=== PATIENT | female | born 1960 | race Caucasian/White ===

== ENCOUNTER 2017-05-20 10:54 | Emergency (ER) | payer MEDICARE ==
[~2017-05-20] VITALS: Ht 170.2 cm; Wt 90.0 kg
[~2017-05-20 10:54] MED LIST: ALBUTEROL2.5 MG/31 IN; AMOXICILLIN500 MG PO; AMOXICILLIN875 MG PO; AZO DINE95 MG OR; AZO STANDARD OR; BACTRIM DS1 TAB OR; BACTRIM DS1 TAB PO; CELEXA20 M1 OR; CEPHALEXIN500 MG PO; CHERATUSSIN OR; CIPRO250 MG OR; DIFLUCAN100 MG PO; FLONASE NASAL50 MCG; FLOVENT HFA110 MCG IN; GLIPIZIDE ER5 MG OR; GLIPIZIDE XL10 MG OR; GLUCOTROL10 MG OR; HUMULIN 70/30 K1 INJ SC; HUMULIN 70/30 SC; KEFLEX500 M1 PO; LORTAB 10 PO; LORTAB5 OR; LORTAB5 PO; LYRICA; LYRICA75 MG PO; MACROBID100 MG OR; MEDDOSEPAK PO; MELATONIN CR3 MG PO; NAPROSYN500 MG PO; NEURONTIN400 MG PO; PERCOCET 5/321 COMBO PO; PERCOCET 5/325M1 TAB OR; PRAVACHOL10 MG OR; PRAVASTATIN40 MG PO; PRAVASTATIN80 MG OR; PREDNISONE10 MG PO; PROAIR HFA IN; PROVENTIL0.083 % IN; ROBITUSSIN AC10 ML OR; SIMVASTATIN40 MG OR; TIZANIDINE4 MG PO; TORADOL30 MG/VIAL IM; TRAMADOL HCL50 MG OR; TRAZODONE150 MG OR; TRICOR48 MG PO; VICOPROFEN OR; ZOCOR20 MG OR; ZOLOFT50 MG PO; ZPAK OR; ZYLOPRIM100 MG PO; [UNRECOGNIZED DRUG - OTHER] SC
[2017-05-20 11:22] LABS: HEMATOCRIT 40.5 % (37.0-47.0); HEMOGLOBIN 12.7 g/dl (12.0-16.0); IMMATURE GRANULOCYTES 3.6 % (0.0-1.0); MEAN CELL VOLUME 90.6 fL CALC (80.0-100.0); MEAN CORPUSCULAR HGB 28.4 pG CALC (26.0-32.0); MEAN CORPUSCULAR HGB CONC 31.4 g/L CALC (32.0-36.0); NEUT# 16.36 thou/uL (2.00-7.15); RED BLOOD COUNT 4.47 mill/uL (4.20-5.60)
[2017-05-20 11:41] LABS: ALBUMIN 3.6 g/dL (3.2-5.0); BILIRUBIN, TOTAL 0.4 mg/dL (0.0-1.4); CALCIUM 7.4 mg/dL (8.4-10.2); CREATININE 3.8 mg/dL (0.5-1.0); POTASSIUM 4.7 mmol/l (3.5-5.1)
[2017-05-20 11:42] LABS: ACT PARTIAL THROMBO TIME 27.3 SECONDS (20.0-32.5); D-DIMER 1.39 mg/L (0.19-0.60); INTERNATIONAL NORMALIZED RATIO 0.9 RATIO (0.7-1.3); PROTHROMBIN TIME 10.2 SECONDS (9.0-12.5)
[2017-05-20 16:34] VITALS: BP 140/79
--- NOTE | 2017-05-23 11:39 | NUR ---
PT TRN TO [facility] ON 05/20/17. FAXED PRELIMINARY BLOOD CULTURE FROM 05/20/17, SHOWING GRAM POSITIVE COCCI IN 1 BOTTLE, TO [facility] AT [phone] (FAX), (PHONE)
== END 2017-05-20 16:36 | disposition short-term general hospital (02) ==
LOC: ED 10:54
PROVIDERS: Emergency Medicine
DX: R07.9 Chest pain, unspecified (principal); J06.9 Acute upper respiratory infection, unspecified; D72.829 Elevated white blood cell count, unspecified; I12.0 Hypertensive chronic kidney disease with stage 5 chronic kidney disease or end stage renal disease; N18.6 End stage renal disease; Z99.2 Dependence on renal dialysis; R06.02 Shortness of breath; F17.200 Nicotine dependence, unspecified, uncomplicated; B95.7 Other staphylococcus as the cause of diseases classified elsewhere
CPT/HCPCS: A9540; A9567; J1650

== ENCOUNTER 2019-04-19 16:55 | Emergency (ER) | payer MEDICARE ==
[~2019-04-19] VITALS: Ht 170.2 cm; Wt 65.0 kg
[2019-04-19 17:43] LABS: HEMATOCRIT 44.5 % (37.0-47.0); HEMOGLOBIN 13.6 g/dl (12.0-16.0); IMMATURE GRANULOCYTES 1.3 % (0.0-5.0); MEAN CELL VOLUME 86.6 fL CALC (80.0-100.0); MEAN CORPUSCULAR HGB 26.5 pG CALC (26.0-32.0); MEAN CORPUSCULAR HGB CONC 30.6 g/L CALC (32.0-36.0); NEUT# 14.82 thou/uL (2.00-7.15); RED BLOOD COUNT 5.14 mill/uL (4.20-5.60); RED CELL DISTRI WIDTH 14.8 % (11.5-15.5)
[2019-04-19 18:01] LABS: ALBUMIN 3.3 g/dL (3.2-5.0); BILIRUBIN, TOTAL 0.3 mg/dL (0.0-1.4); TOTAL PROTEIN 6.1 g/dL (6.3-8.2)
[2019-04-19 18:03] LABS: CREATININE 2.7 mg/dL (0.5-1.0); POTASSIUM 3.5 mmol/l (3.5-5.1)
[2019-04-19] MEDS ORDERED: ALBUTEROL SUL0.083 % IN (18:50)
[2019-04-19] MEDS ORDERED: ZITHROMAX250 MG PO (18:50)
[2019-04-19 20:25] VITALS: BP 164/74
[2019-04-19] MEDS ORDERED: TORADOL PO (20:26)
== END 2019-04-19 20:25 | disposition home or self-care (01) ==
LOC: ED 16:55
PROVIDERS: Emergency Medicine
DX: J44.1 Chronic obstructive pulmonary disease with (acute) exacerbation (principal); J06.9 Acute upper respiratory infection, unspecified; N18.6 End stage renal disease; F17.200 Nicotine dependence, unspecified, uncomplicated; Z99.2 Dependence on renal dialysis; R07.9 Chest pain, unspecified
CPT/HCPCS: J0131

== ENCOUNTER 2020-10-13 19:30 | Emergency (ER) | payer MEDICARE, MEDICAID ==
[~2020-10-13] VITALS: Ht 170.2 cm; Wt 68.0 kg
[~2020-10-13 19:30] MED LIST changes: +ALBUTEROL SUL0.083 % IN; +TORADOL PO; +ZITHROMAX250 MG PO
[2020-10-13] MEDS ORDERED: CARVEDILOL25 MG PO (20:40)
[2020-10-13] MEDS ORDERED: PERCOCET 5/321 COMBO PO (22:38)
[2020-10-13 22:40] VITALS: BP 184/86
== END 2020-10-13 22:48 | disposition home or self-care (01) ==
LOC: ED 19:30
DX: R07.89 Other chest pain (principal); R03.0 Elevated blood-pressure reading, without diagnosis of hypertension; F17.200 Nicotine dependence, unspecified, uncomplicated; X50.0XXA Overexertion from strenuous movement or load, initial encounter

== ENCOUNTER 2020-11-11 19:34 | Emergency (ER) | payer MEDICARE, MEDICAID ==
[~2020-11-11] VITALS: Ht 170.2 cm; Wt 66.8 kg
[~2020-11-11 19:34] MED LIST changes: +CARVEDILOL25 MG PO
[2020-11-11 20:28] LABS: HEMATOCRIT 42.7 % (37.0-47.0); IMMATURE GRANULOCYTES 0.6 % (0.0-5.0); MEAN CELL VOLUME 90.1 fL CALC (80.0-100.0); MEAN CORPUSCULAR HGB 27.4 pG CALC (26.0-32.0); MEAN CORPUSCULAR HGB CONC 30.4 g/dL CAL (32.0-36.0); NEUT# 19.7 thou/uL (2.00-7.15); RED BLOOD COUNT 4.74 mill/uL (4.20-5.60); RED CELL DISTRI WIDTH 14.8 % (11.5-15.5)
[2020-11-11 20:46] LABS: ACT PARTIAL THROMBO TIME 25.3 SECONDS (20.0-32.5); PROTHROMBIN TIME 10.2 SECONDS (9.0-12.5)
[2020-11-11 20:47] LABS: ALBUMIN 3.5 g/dL (3.2-5.0); BILIRUBIN, TOTAL 0.2 mg/dL (0.0-1.4); POTASSIUM 4.2 mmol/l (3.5-5.1)
[2020-11-11 20:49] LABS: CREATININE 4.6 mg/dL (0.5-1.0)
[2020-11-11 22:50] VITALS: BP 148/88
== END 2020-11-11 22:50 | disposition short-term general hospital (02) ==
LOC: ED 19:34
DX: I21.4 Non-ST elevation (NSTEMI) myocardial infarction (principal); K85.90 Acute pancreatitis without necrosis or infection, unspecified; D72.829 Elevated white blood cell count, unspecified; N18.6 End stage renal disease; F17.200 Nicotine dependence, unspecified, uncomplicated; Z99.2 Dependence on renal dialysis; Z95.5 Presence of coronary angioplasty implant and graft; Z20.828 Contact with and (suspected) exposure to other viral communicable diseases
CPT/HCPCS: J1644; S0164

== ENCOUNTER 2020-11-25 07:28 | Emergency (ER) | payer MEDICARE, MEDICAID ==
[~2020-11-25] VITALS: Ht 170.2 cm; Wt 65.9 kg
[2020-11-25] MEDS ORDERED: ASPIRIN 81 LOW81 MG PO (08:11)
[2020-11-25] MEDS ORDERED: BRILINTA90 MG PO (08:12)
[2020-11-25] MEDS ORDERED: LIPITOR80 M1 PO (08:12)
[2020-11-25] MEDS ORDERED: FUROSEMIDE20 MG PO (08:13)
[2020-11-25] MEDS ORDERED: [UNRECOGNIZED DRUG - OTHER] PO (08:13)
[2020-11-25] MEDS ORDERED: CARVEDILOL3.125 MG PO (08:13)
[2020-11-25] MEDS ORDERED: LORAZEPAM0.5 MG PO (08:14)
[2020-11-25] MEDS ORDERED: NICODERM C21 MG/242 TD (08:15)
[2020-11-25] MEDS ORDERED: PROTONIX40 M2 PO (08:15)
[2020-11-25] MEDS ORDERED: VITAMIN B-1100 M1 PO (08:16)
[2020-11-25] MEDS ORDERED: PREDNISONE10 MG PO (08:16)
[2020-11-25] MEDS ORDERED: SPIRONOLACTONE25 MG PO (08:16)
[2020-11-25 08:35] LABS: HEMATOCRIT 37.6 % (37.0-47.0); HEMOGLOBIN 11.3 g/dl (12.0-16.0); IMMATURE GRANULOCYTES 4.1 % (0.0-5.0); MEAN CELL VOLUME 92.4 fL CALC (80.0-100.0); MEAN CORPUSCULAR HGB 27.8 pG CALC (26.0-32.0); MEAN CORPUSCULAR HGB CONC 30.1 g/dL CAL (32.0-36.0); RED BLOOD COUNT 4.07 mill/uL (4.20-5.60); RED CELL DISTRI WIDTH 14.5 % (11.5-15.5)
[2020-11-25 08:46] LABS: MANUAL DIFFERENTIAL YES; PLATELET COUNT 244 thou/uL (130-400)
[2020-11-25 08:47] LABS: BAND 4 % (0-8)
[2020-11-25 09:15] LABS: ALBUMIN 3.3 g/dL (3.2-5.0); CREATININE 3.8 mg/dL (0.5-1.0); POTASSIUM 4.7 mmol/l (3.5-5.1); TOTAL PROTEIN 5.8 g/dL (6.3-8.2)
[2020-11-25 09:16] LABS: BILIRUBIN, TOTAL 0.5 mg/dL (0.0-1.4)
[2020-11-25 10:43] VITALS: BP 97/58
[2020-11-25 11:02] LABS: URINE BILIRUBIN - DIPSTICK NEGATIVE (NEGATIVE); URINE BLOOD DIPSTICK MODERATE (NEGATIVE); URINE COLOR YELLOW; URINE GLUCOSE - DIPSTICK 250 mg/dL (NEGATIVE); URINE KETONE NEGATIVE (NEGATIVE); URINE LEUK ESTERASE TRACE (NEGATIVE); URINE NITRITE - DIPSTICK NEGATIVE (Negative); URINE PROTEIN - DIPSTICK 100 mg/dL (NEG-TRACE); URINE SPECIFIC GRAVITY 1.015; URINE UROBILINOGEN - DIPSTICK 0.2 E.U./dL (0.2)
[2020-11-25 11:05] LABS: URINE BACTERIA FEW hpf; URINE EPITHELIAL CELLS MANY EPI/hpf (0-FEW); URINE WBC 0-2 WBC/hpf (0-5)
== END 2020-11-25 11:11 | disposition short-term general hospital (02) ==
LOC: ED 07:28
PROVIDERS: Emergency Medicine
PROC: 5A09357 Assistance with Respiratory Ventilation, Less than 24 Consecutive Hours, Continuous Positive Airway Pressure (ICD-10-PCS; principal; 2020-11-25)
DX: J10.00 Influenza due to other identified influenza virus with unspecified type of pneumonia (principal); J44.0 Chronic obstructive pulmonary disease with (acute) lower respiratory infection; R79.89 Other specified abnormal findings of blood chemistry; N18.6 End stage renal disease; F17.200 Nicotine dependence, unspecified, uncomplicated; Z99.2 Dependence on renal dialysis; Z87.01 Personal history of pneumonia (recurrent); Z20.828 Contact with and (suspected) exposure to other viral communicable diseases

== ENCOUNTER 2021-01-22 17:05 | Emergency (ER) | payer MEDICARE, MEDICAID ==
[~2021-01-22] VITALS: Ht 170.2 cm; Wt 66.0 kg
[~2021-01-22 17:05] MED LIST changes: +ASPIRIN 81 LOW81 MG PO; +BRILINTA90 MG PO; +CARVEDILOL3.125 MG PO; +CLONAZEPAM1 MG PO; +FUROSEMIDE20 MG PO; +LIPITOR80 M1 PO; +LORAZEPAM0.5 MG PO; +NICODERM C21 MG/242 TD; +PROTONIX40 M2 PO; +SPIRONOLACTONE25 MG PO; +VITAMIN B-1100 M1 PO; +[UNRECOGNIZED DRUG - OTHER] PO
[2021-01-22 18:00] LABS: IMMATURE GRANULOCYTES 5.8 % (0.0-5.0); MEAN CELL VOLUME 98.7 fL CALC (80.0-100.0); MEAN CORPUSCULAR HGB 28.8 pG CALC (26.0-32.0); MEAN CORPUSCULAR HGB CONC 29.1 g/dL CAL (32.0-36.0); NEUT# 12.71 thou/uL (2.00-7.15); RED BLOOD COUNT 3.13 mill/uL (4.20-5.60); RED CELL DISTRI WIDTH 16.6 % (11.5-15.5)
[2021-01-22 18:15] LABS: HEMATOCRIT 30.9 % (37.0-47.0)
[2021-01-22 18:18] LABS: ALBUMIN 3.8 g/dL (3.2-5.0); CREATININE 4.6 mg/dL (0.5-1.0); TOTAL PROTEIN 7.1 g/dL (6.3-8.2)
[2021-01-22 18:49] LABS: BILIRUBIN, TOTAL 0.9 mg/dL (0.0-1.4); POTASSIUM 6.1 mmol/l (3.5-5.1)
[2021-01-22 22:15] VITALS: BP 104/71
[2021-01-22 22:49] LABS: INTERNATIONAL NORMALIZED RATIO 1.4 RATIO (0.7-1.3); PROTHROMBIN TIME 14.1 SECONDS (9.0-12.5)
== END 2021-01-22 22:37 ==
LOC: ED 17:05
PROVIDERS: Family Medicine
PROC: 5A09357 Assistance with Respiratory Ventilation, Less than 24 Consecutive Hours, Continuous Positive Airway Pressure (ICD-10-PCS; principal; 2021-01-22)
DX: J44.1 Chronic obstructive pulmonary disease with (acute) exacerbation (principal); J18.9 Pneumonia, unspecified organism; J44.0 Chronic obstructive pulmonary disease with (acute) lower respiratory infection; J96.01 Acute respiratory failure with hypoxia; R79.89 Other specified abnormal findings of blood chemistry; E87.5 Hyperkalemia; I82.811 Embolism and thrombosis of superficial veins of right lower extremity; N18.6 End stage renal disease; F17.200 Nicotine dependence, unspecified, uncomplicated; Z99.81 Dependence on supplemental oxygen; Z99.2 Dependence on renal dialysis; Z20.822 Contact with and (suspected) exposure to COVID-19
CPT/HCPCS: J1644

== ENCOUNTER 2021-02-27 | Emergency (ER) | payer MEDICARE, MEDICAID ==
[2021-02-27 21:52] LABS: HEMATOCRIT 31.3 % (37.0-47.0); IMMATURE GRANULOCYTES 2.1 % (0.0-5.0); MEAN CELL VOLUME 101.6 fL CALC (80.0-100.0); MEAN CORPUSCULAR HGB 29.2 pG CALC (26.0-32.0); MEAN CORPUSCULAR HGB CONC 28.8 g/dL CAL (32.0-36.0); NEUT# 10.1 thou/uL (2.00-7.15); RED BLOOD COUNT 3.08 mill/uL (4.20-5.60); RED CELL DISTRI WIDTH 17.3 % (11.5-15.5)
[2021-02-27 22:05] LABS: ALBUMIN 3.5 g/dL (3.2-5.0); BILIRUBIN, TOTAL 0.6 mg/dL (0.0-1.4); CREATININE 4.4 mg/dL (0.5-1.0); POTASSIUM 4.9 mmol/l (3.5-5.1); TOTAL PROTEIN 6.2 g/dL (6.3-8.2)
== END 2021-02-28 01:51 ==
PROVIDERS: Emergency Medicine
DX: K65.2 Spontaneous bacterial peritonitis (principal); N18.6 End stage renal disease; Z99.2 Dependence on renal dialysis; F17.200 Nicotine dependence, unspecified, uncomplicated

== ENCOUNTER 2021-03-17 | Emergency (ER) | payer MEDICARE, MEDICAID ==
[2021-03-17 19:11] LABS: HEMATOCRIT 23.5 % (37.0-47.0); HEMOGLOBIN 7.1 g/dl (12.0-16.0); IMMATURE GRANULOCYTES 1.9 % (0.0-5.0); MEAN CELL VOLUME 96.7 fL CALC (80.0-100.0); MEAN CORPUSCULAR HGB 29.2 pG CALC (26.0-32.0); MEAN CORPUSCULAR HGB CONC 30.2 g/dL CAL (32.0-36.0); NEUT# 16.18 thou/uL (2.00-7.15); RED BLOOD COUNT 2.43 mill/uL (4.20-5.60); RED CELL DISTRI WIDTH 16.8 % (11.5-15.5)
[2021-03-17 19:29] LABS: ACT PARTIAL THROMBO TIME 25.5 SECONDS (20.0-32.5)
[2021-03-17 19:31] LABS: INTERNATIONAL NORMALIZED RATIO 2.7 RATIO (0.7-1.3); PROTHROMBIN TIME 27.3 SECONDS (9.0-12.5)
[2021-03-17 19:54] LABS: ALBUMIN 2.4 g/dL (3.2-5.0); BILIRUBIN, TOTAL 1.5 mg/dL (0.0-1.4); POTASSIUM 5.6 mmol/l (3.5-5.1); TOTAL PROTEIN 4.5 g/dL (6.3-8.2)
[2021-03-17 19:55] LABS: CREATININE 5.2 mg/dL (0.5-1.0)
[2021-03-17 20:23] VITALS: BP 80/51
[2021-03-17 20:34] VITALS: BP 80/49
== END 2021-03-17 20:53 | disposition short-term general hospital (02) ==
PROC: 06HY33Z Insertion of Infusion Device into Lower Vein, Percutaneous Approach (ICD-10-PCS; principal; 2021-03-17)
PROC: 30243N1 Transfusion of Nonautologous Red Blood Cells into Central Vein, Percutaneous Approach (ICD-10-PCS; 2021-03-17)
PROC: 30243N1 Transfusion of Nonautologous Red Blood Cells into Central Vein, Percutaneous Approach (ICD-10-PCS; 2021-03-17)
DX: N93.9 Abnormal uterine and vaginal bleeding, unspecified (principal); I95.9 Hypotension, unspecified; R41.82 Altered mental status, unspecified; R00.0 Tachycardia, unspecified; R53.1 Weakness; I12.0 Hypertensive chronic kidney disease with stage 5 chronic kidney disease or end stage renal disease; N18.6 End stage renal disease; Z99.2 Dependence on renal dialysis; Z20.822 Contact with and (suspected) exposure to COVID-19
CPT/HCPCS: P9016